=== PATIENT | male | born 1970 | race Caucasian/White ===

== ENCOUNTER 2018-07-23 06:47 | Day surgery (SDC) | payer OTHER ==
[2018-07-12 09:29] LABS: ABSOLUTE BASOPHILS 0.1 thou/uL (0.0-0.2); ABSOLUTE EOSINOPHILS 0.2 thou/uL (0.0-0.7); ABSOLUTE LYMPHOCYTES 1.8 thou/uL (0.8-5.3); ABSOLUTE MONOCYTES 0.7 thou/uL (0.0-1.2); ABSOLUTE NEUTROPHILS 2.2 thou/uL (1.6-8.1); BASOPHILS 1.3 %; EOSINOPHILS 4.7 %; HEMATOCRIT 40.1 % (42.0-52.0); HEMOGLOBIN 13.5 gm/dL (14.0-18.0); LYMPHOCYTES 36.3 %; MCH 30.6 pg (26.0-34.0); MCHC 33.6 g/dL (28.0-37.0); MONOCYTES 13.2 %; MPV 6.9 fl. (7.2-11.1); NUCLEATED RBCS 0 /100WBC; PLATELET COUNT* 312 thou/uL (150-400); POLYS 44.5 %; RDW-CV 13.4 % (10.5-14.5)
[2018-07-12 09:51] LABS: APTT 25.7 Seconds (25.0-31.3); PROTIME 10.6 Seconds (9.20-11.50)
[2018-07-12 10:02] LABS: ALBUMIN 3.9 g/dL (3.4-5.0); CREATININE 1.1 mg/dL (0.6-1.3); POTASSIUM 4.2 mmol/L (3.5-5.1); TOTAL BILIRUBIN 0.6 mg/dL (<0.1-1.0); TOTAL PROTEIN 7.3 g/dL (6.4-8.2)
[2018-07-12 10:47] LABS: ESR (SEDRATE) 5 mm/hr (0-15)
[~2018-07-23] VITALS: Ht 177.8 cm; Wt 86.2 kg
--- NOTE | ~2018-07-23 | OP ---
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 PROCEDURE: Right total hip arthroplasty with anterior surgical incision. SURGEON: Osorio Johnson DO VOLUNTEER SERVICES MANAGER: Omer Corea DO THIRD PICTURE PAINTER: Sunday Oneal DO ANESTHESIA: General endotracheal. ANTIBIOTICS: 2 grams Ancef IVPB 3 hours prior to incision. ESTIMATED BLOOD LOSS: 575 mL, none returned. IMPLANTS: Biomet G7 finned acetabular shell size 60, a -3 taper adapter, a 6.5 x 30 mm screw, a 6.5 x 20 mm screw, a G7 acetabular liner high wall E1 antioxidant size 40, a 40 mm ceramic head and a 16 x 117 mm high offset Taperloc reduced distal femoral stem. SPECIMENS: None. COMPLICATIONS: None. INDICATIONS FOR SURGERY: The patient is a 48-year-old male with longstanding severe bilateral hip pain, right worse than left. He can no longer tolerate the discomfort. He cannot do his daily activities without severe pain. Quality of life has been extremely poor for him. He is having trouble sleeping. He has trouble exercising. He has trialled anti-inflammatories with nonsteroidal anti-inflammatories. He has done exercise therapy, weight loss, behavior modification to no avail. X-rays show advanced degenerative joint disease with complete loss of femoroacetabular joint, flattening of the femoral head, [place] [id number] OPERATIVE REPORT Name: JEROME VALADEZ Room: [address] Tayla#: [id number] Admission: 07/23/18 Attend Phys: Ole Hopkins Discharge: Date of : 74 Report #: [id number] apposition of the femur on the acetabulum. He is here today for elective surgical intervention. Risks and complications were discussed in detail. These include but not limited to neurovascular damage, infection, fracture, need for further surgery, failure of the prosthesis, recall of prosthesis, allergy developed to prosthesis, deep vein thrombosis, pulmonary emboli, myocardial infarction, rhabdomyolysis, leg length discrepancy, chronic limp and problems with anesthesia, blood loss with blood transfusion problems and other things that cannot be fully appreciated at this time. The signed informed consent has been attached to the chart, may refer to and his hip is marked preoperatively for timeout technique. DESCRIPTION OF PROCEDURE: The patient was taken to the operative suite and placed on the operating room table in a [place] table in supine position. The right hip was prepped and draped in usual sterile fashion. Timeout technique is utilized to verify appropriate surgical site, procedure and concerns. All questions once again were answered. Incision was then outlined with indelible marking pen, injected with the anesthetic solution subcutaneously and then after incision was made deep to the musculature as well as deep to the tensor fascia. Incision was carried through skin and subcutaneous tissue, approximately 6-8 cm in length down to the tensor fascia. The incision was made 2 cm posterior to the ASIS and 1-2 cm distal to it. The tensor fascia was then incised in line with the skin incision approximately a centimeter posterior to the interval between the tensor fascia leslie and the sartorius. Finger dissection and blunt dissection was then carried down to the level of the circumflex vessels. These were then treated with the Aquamantys and then resected with electrocautery. Further dissection was carried down to the anterior capsule. The capsule was treated with the Aquamantys and resected with the electrocautery. The appropriate retractors were in place. The femoral neck was visualized. It was resected once at the base of femoral neck a fingerbreadth above the lesser trochanter and a second at the base of femoral head. The napkin ring portion of the femoral neck was removed with a bony tenaculum. The femoral head was then removed with bone tenaculum, measured and the appropriate reamers then obtained. The acetabulum was prepared by removing the labral structures with the use of electrocautery. The acetabulum was then reamed sequentially to a size 59 mm reamer. Final reaming was done under C-arm fluoroscopy for appropriate alignment and depth. The final acetabular component was obtained and readied on the back table. Copious irrigation carried out at the acetabulum itself. The acetabulum was thoroughly dried, sprinkled with vancomycin powder. Final cup was then impacted firmly into place utilizing direct visualization, C-arm fluoroscopy and external guide for guidance. Once impacted firmly, the guiding apparatus was removed. The 2 drill holes were performed, measured and the appropriate screws were then placed. Volunteer Services Director x-ray was obtained to make certain of appropriate screw placement. It was necessary to change out the 25 mm screw for a 20 mm screw in order to get the best purchase. The apical screw hole cover was then placed followed by placement of the final E1 poly liner with [facility] [address] [place] [address] OPERATIVE REPORT Name: JEROME VALADEZ Room: [address] Alvin Bourne#: [id number] Admission: 07/23/18 Attend Phys: Ole Hopkins Discharge: Date of : 74 Report #: [id number] a high wall in the anterior superior direction. Attention was then turned to the femur. The lower leg was appropriately positioned on the [place] table to allow access to proximal femur with the box osteotome followed by the rat tail broach. The femur was then sequentially broached up to the 16 mm Taperloc stem. Trial reduction was performed with various sized neck lengths. The hip was checked for leg length. It should be noted that he was significantly longer on this hip with measurement from transischial tuberosities to lesser trochanters prior to the surgery. Therefore, we returned him to his preoperative length in order to keep him as close to his normal length as possible. The hip was then checked for stability. It was quite stable on his range of motion testing. The final components were then obtained. Trial components were removed. The deep tissue was injected with the anesthetic solution, copiously irrigated with sterile saline solution, sprinkled with vancomycin powder. The Taperloc stem was then impacted firmly into place. The final -3 taper adapter and ceramic head was impacted firmly onto a clean, dry Graham taper neck. Final reduction was performed, once again stability was noted through all planes. The final x-rays were obtained. Leg length is essentially equal to the preoperative films. The hemostasis was achieved throughout the procedure with electrocautery, direct pressure as well as use of TXA IV. The incision was then closed with a #1 running Quill suture to the tensor fascia. This was continued through layered closure to the deep tissue. The subcutaneous tissue was then reapproximated with the use of 2-0 Monocryl in interrupted fashion buried sutures, followed by running 3-0 Stratafix subcuticular suture, reinforced with Dermabond glue to the skin. A clean, dry, Mepilex dressing is applied followed by bilateral thigh high PEEWEE hose. The patient was taken to recovery in stable condition. No complications were encountered. Final instrument counts, sponge counts correct x 2. X-rays postop in the OR show excellent alignment of a total hip arthroplasty with appropriate leg length. No evidence of fracture or dislocation. By: [id number] Johnson DO /sandra
[~2018-07-23 06:47] MED LIST: OMEPRAZOLE40 MG PO
[2018-07-23 07:20] VITALS: BP 131/78
[2018-07-23] MEDS ORDERED: ROXYBOND5 MG PO (12:42)
[2018-07-23] MEDS ORDERED: ELIQUIS2.5 MG PO (12:43)
[2018-07-23] MEDS ORDERED: DILAUDID 2 MG TA2 MG PO (12:43)
[2018-07-23 13:00] VITALS: BP 131/78
[2018-07-23 13:38] VITALS: BP 131/78
[2018-07-23 14:02] VITALS: BP 131/78
--- NOTE | 2018-07-24 09:01 | NUR ---
PT. DISCHARGED TO HOME PRIOR O.T. EVAL. PLEASE ORDER FURTHER O.T. SERVICES IF NEEDED.
== END 2018-07-23 14:40 | disposition home or self-care (01) ==
LOC: M.SUR 06:47 → M.TBA 11:14 → M.SUR 11:14
PROVIDERS: Orthopaedic Surgery
DX: M16.0 Bilateral primary osteoarthritis of hip (principal); K21.9 Gastro-esophageal reflux disease without esophagitis; Z79.899 Other long term (current) drug therapy; Z79.01 Long term (current) use of anticoagulants; Z98.890 Other specified postprocedural states

== ENCOUNTER 2020-12-25 01:49 | Emergency (ER) | payer OTHER ==
[~2020-12-25] VITALS: Ht 177.8 cm; Wt 97.5 kg
[~2020-12-25 01:49] MED LIST changes: +DILAUDID 2 MG TA2 MG PO; +ELIQUIS2.5 MG PO; +ROXYBOND5 MG PO
[2020-12-25] MEDS ORDERED: SUPER THERAVIT1 EACH PO (01:58)
[2020-12-25 02:29] LABS: ABSOLUTE BASOPHILS 0.1 thou/uL (0.0-0.2); ABSOLUTE EOSINOPHILS 0.3 thou/uL (0.0-0.7); ABSOLUTE LYMPHOCYTES 2.1 thou/uL (0.8-5.3); ABSOLUTE MONOCYTES 0.7 thou/uL (0.0-1.2); ABSOLUTE NEUTROPHILS 2.9 thou/uL (1.6-8.1); BASOPHILS 1.1 %; EOSINOPHILS 5.4 %; HEMATOCRIT 41.7 % (42.0-52.0); MCHC 33.6 g/dL (28.0-37.0); MCV 92.1 fL (80.0-100.0); MONOCYTES 12.1 %; MPV 6.7 fl. (7.2-11.1); NUCLEATED RBCS 0 /100WBC; PLATELET COUNT* 282 thou/uL (150-400); POLYS 47.4 %; RBC 4.53 mil/uL (4.50-6.00); RDW-CV 13.2 % (10.5-14.5); WBC 6.2 thou/uL (4.0-11.0)
[2020-12-25 02:37] LABS: CALCIUM 9.1 mg/dL (8.5-10.1); CREATININE 1.3 mg/dL (0.6-1.3); POTASSIUM 4.9 mmol/L (3.5-5.1)
[2020-12-25] MEDS ORDERED: HYDROCODON-ACE1 EAC8 PO (03:31)
[2020-12-25] MEDS ORDERED: ZOFRAN ODT4 MG PO (03:31)
[2020-12-25 03:50] VITALS: BP 149/87
== END 2020-12-25 03:51 | disposition home or self-care (01) ==
LOC: M.ERS 01:49
PROVIDERS: Emergency Medicine
DX: N20.1 Calculus of ureter (principal); K21.9 Gastro-esophageal reflux disease without esophagitis; Z98.890 Other specified postprocedural states; Z79.899 Other long term (current) drug therapy; Z91.09 Other allergy status, other than to drugs and biological substances